=== PATIENT | female | born 1965 | race Caucasian/White ===

== ENCOUNTER 2018-02-19 07:57 | Day surgery (SDC) | payer BC ==
[2018-02-19] MEDS ORDERED: Lactated Ringer's 500 ML IV ONE (08:12)
[2018-02-19 08:18] VITALS: BMI 23.8
[2018-02-19] MEDS ORDERED: Propofol 10 mg/ml Inj (20 ML) ONE (08:59)
[2018-02-19] MEDS ORDERED: Midazolam 2 MG/2 ML VIAL ONE (08:59)
[2018-02-19 10:10] VITALS: BP 111/65; PULSE 76; RESP 16; TEMP 97.9; O2SAT 100
== END 2018-02-19 14:26 | disposition home or self-care (01) ==
LOC: H.ENDO 07:57
PROVIDERS: ATTEND Internal Medicine Gastroenterology
DX: K59.00 Constipation, unspecified (principal); K64.1 Second degree hemorrhoids; M48.00 Spinal stenosis, site unspecified; K30 Functional dyspepsia; K31.89 Other diseases of stomach and duodenum
CPT/HCPCS: 43239; 45378; 88305; J2001; J2250; J2704; J7120